=== PATIENT | female | born 1990 | race Caucasian/White ===

== ENCOUNTER → 2020-07-21 11:35 | Outpatient (CLI) | payer OTHER, SELFPAY ==
[2020-07-21 13:04] LABS: Add Manual Diff / Slide Review NO; Basophils Absolute Auto 100 /uL (0-100); Basophils Percent Auto 0.7 % (0-2); Eosinophils Absolute Auto 100 /uL (0-450); Eosinophils Percent Auto 1.5 % (2-4); Hemoglobin 11.2 g/dL (12.0-16.0); Lymphocytes Absolute Auto 1700 /uL (1100-4500); Lymphocytes Percent Auto 19.1 % (25-40); Mean Corpuscular Hemoglobin 26.5 PG (26-34); Mean Corpuscular Volume 80.5 fL (80-100); Monocytes Absolute Auto 600 /uL (0-900); Monocytes Percent Auto 6.6 % (3-14); Neutrophils Absolute Auto 6300 /uL (1500-7000); Neutrophils Percent Auto 72.1 % (50-75); Platelet Count 248 X10^3/uL (150-400); Red Blood Cell Count 4.22 X10^6/uL (4.0-5.2); Red Cell Distribution Width 14.8 % (11.6-14.8); White Blood Cell Count 8.7 X10^3/uL (4.5-11.0)
[2020-07-21 13:17] LABS: GTT (PREG) 1 Hour PP 50gm Dose 109 mg/dL (76-139)
== END ==
PROVIDERS: PCP Family Medicine; Referring Provider Family Medicine; Visit Provider Family Medicine
DX: Z34.90 Encounter for supervision of normal pregnancy, unspecified, unspecified trimester (principal)
CPT/HCPCS: 36415; 82950; 85025

== ENCOUNTER → 2020-08-03 08:10 | Outpatient (CLI) | payer OTHER, SELFPAY ==
--- NOTE | 2020-08-03 08:11 | DI.US.S_ITS ---
PROCEDURE: US OB LIMITED INDICATIONS: SIZE > DATES. GROWTH AND AMNIOTIC FLUID OUTSIDE/PRIOR DATING DATA: Last menstrual period (LMP): 01/04/2020. LMP-based estimated date of delivery (MELODIE): 10/10/2020 . First dating scan (date and location): 05/28/2020 . Estimated date of delivery (MELODIE) from first dating scan: 10/08/2020 . TECHNIQUE: Real-time scanning was performed of the fetus, with image documentation and biometric measurements. Endovaginal scanning: No COMPARISON: [facility], RG, US OB > 14 WEEKS, 05/28/2020, 8:02. [facility], RG, US OB LIMITED, 06/18/2020, 14:10. FINDINGS: General: A single living intrauterine gestation is present. Presentation: Vertex. Placenta: Placental position is anterior , without previa. Amniotic fluid index: 10.1 cm, normal range is 5-24 cm. heart rate: 137 beats per minute. Maternal cervical canal: 5.0 cm long. Normal lower limit is 2.5 cm. biometrics: Biparietal diameter: 33 weeks 1 day Head circumference: 31 weeks 5 days Abdominal circumference: 31 weeks 5 days Femur length: 31 weeks 4 days Estimated gestational age from initial scan: 30 weeks 4 days Composite gestational age from present scan: 32 weeks Estimated weight and percentile: 18 30 g; 79th percentile Measurement variability for biometric dating: +/- 7 days from 14 weeks to 15 weeks 6 days gestation, +/- 10 days from 16 weeks to 21 weeks 6 days gestation, +/- 2 weeks from 22 weeks to 27 weeks 6 days gestation, +/- 3 weeks for 28 weeks gestation or later. weight reference: 4500 g or EFW >90/95% is considered macrosomia or large for gestational age. EFW <10% is small for gestational age. EFW 5% or less is considered intra-uterine growth restriction. Other: Limited anatomic survey. IMPRESSION: Single living IUP redemonstrated and interval growth is normal. Dictated by: Felix Zeng [facility] Interpreted: Aki Bowie MD on 08/03/2020 at 9:41 Approved by: Aki Bowie M.D. on 08/03/2020 at 14:18
== END ==
PROVIDERS: PCP Family Medicine; Referring Provider Family Medicine; Visit Provider Family Medicine
DX: O26.843 Uterine size-date discrepancy, third trimester (principal); Z3A.29 29 weeks gestation of pregnancy
CPT/HCPCS: 76815

== ENCOUNTER → 2020-08-25 09:58 | Outpatient (CLI) | payer OTHER, SELFPAY | PROVIDERS: PCP Family Medicine; Visit Provider Family Medicine | DX: R82.90 Unspecified abnormal findings in urine (principal) | CPT/HCPCS: 87086 ==

== ENCOUNTER → 2020-09-13 10:42 | Outpatient (CLI) | payer OTHER, SELFPAY ==
--- NOTE | 2020-09-13 10:44 | DI.US.S_ITS ---
PROCEDURE: US OB LIMITED INDICATIONS: SIZE > DATES AND AMNIOTIC FLUID OUTSIDE/PRIOR DATING DATA: Last menstrual period (LMP): 01/04/2020 . LMP-based estimated date of delivery (MELODIE): 10/10/2020 . First dating scan (date and location): [facility], 05/28/2020 . Estimated date of delivery (MELODIE) from first dating scan: 10/08/2020 TECHNIQUE: Real-time scanning was performed of the fetus, with image documentation. Endovaginal scanning: Not performed COMPARISON: [facility], US OB LIMITED, 08/03/2020, 8:36. FINDINGS: A single living intrauterine gestation is present. Presentation: Vertex. Placenta: Placental position is anterior, without previa. Amniotic fluid index: 7.8 cm, normal range is 5-24 cm. heart rate: 150 beats per minute. Maternal cervical canal: 3.1 cm long. Normal lower limit is 2.5 cm. Estimated gestational age from initial scan: 36 week 3 day . Biparietal diameter: 9.7 cm, 39 week 4 day, greater than 99th percentile Head circumference: 34.5 cm, 39 week 6 day, 92 percentile Abdominal circumference: 31.2 cm, 35 week 0 day, 22 percentile Femur length: 7.1 cm, 36 week 2 day, 43 percentile Composite gestational age today: 37 week 5 day Estimated weight: 2909 g, 50th percentile IMPRESSION: Single live intrauterine consistent overall with 37 week 5 day gestation by ultrasound Biparietal diameter measurement is greater than the 99th percentile for EGA Dictated by: Jefe Velasquez M.D. on 09/15/2020 at 9:47 Approved by: Jefe Velasquez M.D. on 09/15/2020 at 10:03
== END ==
PROVIDERS: PCP Family Medicine; Referring Provider Family Medicine; Visit Provider Family Medicine
DX: O26.843 Uterine size-date discrepancy, third trimester (principal); Z3A.37 37 weeks gestation of pregnancy
CPT/HCPCS: 76815

== ENCOUNTER → 2020-09-15 11:47 | Outpatient (CLI) | payer OTHER, SELFPAY ==
[2020-09-16 11:29] LABS: Strep Grp B PCR NEG for Grp B Strep
== END ==
PROVIDERS: PCP Family Medicine; Visit Provider Family Medicine
DX: Z34.90 Encounter for supervision of normal pregnancy, unspecified, unspecified trimester (principal); Z3A.36 36 weeks gestation of pregnancy
CPT/HCPCS: 87653

== ENCOUNTER 2020-10-06 00:27 | Outpatient (CLI) | payer SELFPAY | END 2020-10-06 01:38 | disposition home or self-care (01) | LOC: OB 08:42 | PROVIDERS: Referring Provider Obstetrics & Gynecology; Visit Provider Obstetrics & Gynecology | DX: O47.1 False labor at or after 37 completed weeks of gestation (principal); Z3A.39 39 weeks gestation of pregnancy | CPT/HCPCS: 59025; G0378; G0379 ==

== ENCOUNTER 2020-10-06 06:48 | Inpatient (IN) | payer OTHER, SELFPAY ==
[2020-10-06 07:41] LABS: Add Manual Diff / Slide Review NO; Basophils Absolute Auto 100 /uL (0-100); Basophils Percent Auto 0.5 % (0-2); Eosinophils Absolute Auto 0 /uL (0-450); Eosinophils Percent Auto 0.4 % (2-4); Hemoglobin 11.9 g/dL (12.0-16.0); Lymphocytes Absolute Auto 1800 /uL (1100-4500); Lymphocytes Percent Auto 13.3 % (25-40); Mean Corpuscular HGB Conc 32.3 % (30-36); Mean Corpuscular Hemoglobin 25.2 PG (26-34); Mean Corpuscular Volume 78.1 fL (80-100); Monocytes Absolute Auto 600 /uL (0-900); Monocytes Percent Auto 4.7 % (3-14); Neutrophils Absolute Auto 10700 /uL (1500-7000); Neutrophils Percent Auto 81.1 % (50-75); Platelet Count 234 X10^3/uL (150-400); Red Blood Cell Count 4.74 X10^6/uL (4.0-5.2); Red Cell Distribution Width 16.4 % (11.6-14.8); White Blood Cell Count 13.2 X10^3/uL (4.5-11.0)
[2020-10-06 07:48] VITALS: BP 125/62
--- NOTE | 2020-10-06 08:15 | PM.OBHP.1 ---
OB HPI Date/Time Date of admission: 10/06/20 Date Patient Seen: 10/06/20 Time Patient Seen: 07:45 History of Present Condition Chief complaint: LABOR : 2 Para: 1 Estimated Date of Delivery: 10/10/20 Estimated Gestational Age (weeks): 39w3d Narrative: Princess Mcnair is a 30 year old at 39w3d who presented with regular painful contractions. Pt reports contractions starting around 10pm, picking up in intensity significantly around 11pm. They have continued to worsen since then. She has some vaginal spotting, no LOF. She is feeling her baby move regularly. The pts has been uncomplicated. History of Present care: good care, initiated at week # (8) and pounds weight gain (31) Dating criteria: based on 1st trimester US only Ultrasounds: normal 1st trimester US and normal mid trimester US Obstetrical complications: none Medical complications: none Preadmission Labs Blood type: O (+) positive -: Antibody screen: negative, GBS status: negative, HBsAG: negative, HIV: negative and RPR/VDLR: negative -: Chlamydia screen: not detected and Gonorrhea screen: not detected -: Rubella: immune and Varicella: immune HCT: 34 HCAB: negative PAP: Normal Sequential screen: Negative Urine: Negative Fasting blood glucose: 109 Prior (ies) History: 02/13/16 - at 40w1d, 1gx69yb male, no complications Evaluation Evaluation Baseline heart rate: 130 Variability: Moderate (11-25) monitor accelerations: Present Monitor Decelerations: Absent Contraction Frequency (minutes): 4 Uterine Contraction Intensity: Strong/Firm Status: Category l Cervical dilation (cm): 5 Cervical effacement (%): 90 station: -1 Laboratory results: Laboratory Tests 10/06/20 07:30 WBC 13.2 H RBC 4.74 Hgb 11.9 L Hct 37.0 MCV 78.1 L MCH 25.2 L MCHC 32.3 RDW 16.4 H Plt Count 234 Neut % (Auto) 81.1 H Lymph % (Auto) 13.3 L [place] % (Auto) 4.7 Eos % (Auto) 0.4 L Baso % (Auto) 0.5 Neut # (Auto) 11948 H Lymph # (Auto) 1800 [place] # (Auto) 600 Eos # (Auto) 0 Baso # (Auto) 100 PFSH Medical History (System 10/06/20 @ 08:39 by Malu Sarmiento) (spontaneous vaginal delivery) (~02/13/16) Surgical History (System 10/06/20 @ 08:39 by Malu Sarmiento) S/P laparoscopic cholecystectomy [place] teeth extracted (~2017) Family History (System 10/06/20 @ 08:39 by Malu Sarmiento) Mother History of fibromyalgia Hyperlipidemia Depression Sciatica Diabetes mellitus Type 2 diabetes mellitus Father Heart abnormality Grandmother Diabetes mellitus Hyperlipidemia Hypertension Grandfather Cancer Grandmother Alzheimers disease Grandfather Heart failure Family/Other Ovarian cyst Brother No problems noted. Sister No problems noted. 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 kali/protestant: Gnosticism special kali needs: No Smoking Status: Never smoker second hand exposure: No alcohol intake: former (pre- : on occasion) substance use type: does not use and marijuana (Not during ) Meds Home Medications and Allergies Home Medications Medication Instructions Recorded Confirmed Type prenat.vits,ayana,[id number] 1 tab PO DAILY 06/29/20 10/06/20 History metronidazole 500 mg tablet 500 mg PO BID #14 tab 06/30/20 10/06/20 Rx No Known Home Medications 10/06/20 10/06/20 History Allergies Allergy/AdvReac Type Severity Reaction Status Date / Time Sulfa (Sulfonamide Allergy Intermediate Hives Verified 10/06/20 08:39 Antibiotics) Exam Vital Signs (past 8 hours): - 10/06/20 07:48 Blood Pressure 125/62 Const General: cooperative, healthy appearing and comfortable Orientation: alert, awake and oriented x3 Resp Effort & Inspection: normal respiratory effort Auscultation: clear to auscultation bilaterally Cardio Rate: regular rate Rhythm: regular rhythm Heart Sounds: S1 normal, S2 normal and no murmurs GI Inspection: non-distended Palpation: soft and No tender Other: gravid Presentation: vertex Extrem General: no clubbing, cyanosis or edema Objective Labs Result Diagrams: 10/06/20 07:30 Labs: Laboratory Results - last 24 hr 10/06/20 07:30 WBC 13.2 H RBC 4.74 Hgb 11.9 L Hct 37.0 MCV 78.1 L MCH 25.2 L MCHC 32.3 RDW 16.4 H Plt Count 234 Neut % (Auto) 81.1 H Lymph % (Auto) 13.3 L [place] % (Auto) 4.7 Eos % (Auto) 0.4 L Baso % (Auto) 0.5 Neut # (Auto) 63619 H Lymph # (Auto) 1800 [place] # (Auto) 600 Eos # (Auto) 0 Baso # (Auto) 100 Assessment and Plan Assessment and Plan Assessment and Plan narrative: Pt is a 30 year old at 39w3d who presented in active labor. GBS negative, Rh positive. - Expectant management, anticipate - FHT reassuring, intermittent monitoring okay - GBS negative, no prophylaxis indicated - Epidural for pain control if desired. Pt does not request at this time.
[2020-10-06 08:33] LABS: COVID19 - ADMIT (NP swab/PCR) Negative (Negative)
[2020-10-06] MEDS: CALCIUM CARBONATE 500 MG TAB 1000 MG PO ×2 (11:53→17:47)
[2020-10-06] MEDS: FENT 2MCG/ML BUPIV 0.125% EPI 200 MCG/100 ML PLAST..BAG 6 MCG EPIDURAL (14:35)
--- NOTE | 2020-10-06 14:38 | PM.AN.REGBLK ---
Regional Block Pre-procedure Procedure: Continuous Lumbar Epidural for L&D Attending OB provider: Glory Costa PMH/ROS narrative: term labor, no complications. BMI 40 Hx: No personal or family history of anesthesia problems. ASA Class: III Labs: Hct 37.0 % (36-46) 10/06/20 07:30 Plt Count 234 X10^3/uL (150-400) 10/06/20 07:30 Medications: Current Medications Generic Name Dose Route Start Last Admin Trade Name Freq PRN Reason Stop Dose Admin Carboprost Tromethamine 250 mcg 10/06/20 07:18 Carboprost 250 Mcg/Ml Ampul IM Q90M PRN Bleeding Lactated Ringer's 1,000 mls @ 100 mls/hr 10/06/20 07:30 Lactated Ringers IV CONT OLIMPIA Oxytocin/Lactated Ringer's 30 unit in 500 mls @ 200 mls/hr 10/06/20 07:18 Oxytocin Premix IV CONT PRN Bleeding Protocol Tranexamic Acid 1,000 mg/ 100 mls @ 200 mls/hr 10/06/20 07:18 Sodium Chloride IV NOW PRN Bleeding Methylergonovine Maleate 0.2 mg 10/06/20 07:18 Methylergonovine 0.2 Mg Tablet PO Q6HR PRN Heavy Bleeding Methylergonovine Maleate 0.2 mg 10/06/20 07:18 Methylergonovine 0.2 Mg/Ml Vial IM NOW PRN Bleeding Misoprostol 800 mcg 10/06/20 07:18 Misoprostol 200 Mcg Tablet OH NOW PRN Bleeding Misoprostol 1,000 mcg 10/06/20 07:18 Misoprostol 200 Mcg Tablet OH NOW PRN Bleeding Misoprostol 400 mcg 10/06/20 07:18 Misoprostol 200 Mcg Tablet SL NOW PRN Bleeding Oxytocin 10 unit 10/06/20 07:18 Oxytocin 10 Unit/Ml Vial IM NOW PRN Bleeding Allergies: Allergies Allergy/AdvReac Type Severity Reaction Status Date / Time Sulfa (Sulfonamide Allergy Intermediate Hives Verified 10/06/20 08:39 Antibiotics) Procedure Insertion date: 10/06/20 Insertion time: 14:00 Prep/Local: betadine x3 Interspace: L4-5 Patient position: sitting Needle: 18 gauge Ester (CSE: 27g [place] through [place], clear CSF, 1mL 0.25% bupiv) Loss of resistance with: saline MELISSA at (cm): 8 Catheter placed at SKIN (cm): 15 Catheter in SPACE (cm): 7 Insertion: No CSF, Yes Blood, No Paresthesia with insertion, No Paresthesia with injection and Yes Test dose reaction Initial Medications BOLUS DOSE time: 14:30 BOLUS DOSE (mL): 3 BOLUS DOSE med: other (infusate) Infusion INFUSION: 0.125% bupivacaine and with fentanyl 2 mcg/mL Initial rate (mL/hr): 6 Subsequent interventions: L2-3, unable. L3-4 CSE, catheter, (+) test dose x 2, (+) heme through catheter. Replaced at L4-5, (-) heme, (-) test dose. 21:05 Post-procedure Anesthesia time START: 13:45 Anesthesia time END: 21:05 Post-procedure Anesthesia Assessment: Yes CV function: HR/BP stable, Yes Resp function: RR/sat/airway adequate, Yes Mental status appropriate and No Anesthesia complications
[2020-10-06] MEDS: LACTATED RINGERS 1,000 ML 100 ML IV (16:48)
[2020-10-06] MEDS: OXYTOCIN PREMIX 30 UNIT/500 ML PLAST..BAG 200 UNIT IV (20:20)
--- NOTE | 2020-10-06 21:25 | PM.OBPRVD ---
Labor & Delivery Delivery date: 10/06/20 Intrapartal Events: Prolonged 2nd Stage > 2.5 hours Cervical ripening method: none Induction method: none Delivery augmentation: rupture of membranes Delivery monitor: external FHT Route of delivery: Episiotomy description: None L&D Laceration Description: None Estimated blood loss (mL): 50 Anesthesia Type: Epidural Complications: None Narrative: PROCEDURE: at 39w3d presented in active labor and was admitted to Labor and Delivery. The patient progressed through the 1st stage over 14.5 hours. Pain was controlled with an epidural. AROM was performed with light meconium-stained fluid. The patient progressed through the 2nd stage over 5 hours 45 minutes, with pushing for 4.5 hours. While pushing the baby was noted to be in OP presentation. Manual rotation was attempted but unsuccessful. Multiple positions were attempted. Pitocin was initiated in the 2nd stage due to spacing of contractions. The pt was noted to have a very adequate pelvis. The decision was made to proceed with vacuum-assisted delivery, however prior to application the baby had more rapid descent, and the pt regained significant strength. She delivered a viable male infant with APGARs 8/9 at 21:05 via without complications, and no vacuum application. The cord was cut and clamped after it stopped pulsating. The perineum and vagina were inspected with no lacerations. PREPROCEDURE DIAGNOSIS: Intrauterine at 39w3d GBS negative RH positive POSTPROCEDURE DIAGNOSIS: Intrauterine at 39w3d, delivered Same as preprocedure [place] Baby 1: Infant gender: Male Presentation: vertex Position: Left Occiput Posterior Placenta delivery description: Spontaneous Cord Vessel Description: 3 Vessels score (1 min): 8 score (5 min): 9 weight: 8 lb 15 oz Plan for aftercare: Routine care
[2020-10-07] MEDS: DERMOPLAST SPRAY 20% 60 ML 1 SPRAY TOP (00:45)
[2020-10-07] MEDS: ACETAMINOPHEN 325 MG TABLET 650 MG PO (00:47)
[2020-10-07] MEDS: IBUPROFEN 600 MG TABLET PO ×2 (00:48→09:45)
[2020-10-07] MEDS: LANOLIN OINT 7 GM 1 APPLIC TOP (01:24)
[2020-10-07] MEDS: OXYCODONE IR 5 MG TABLET PO ×2 (01:24→09:46)
[2020-10-07] MEDS: DOCUSATE 100 MG CAPSULE PO (09:45)
[2020-10-07] MEDS: PRENATAL VIT,CALC/IRON/FOLIC 1 TABLET 1 TAB PO (09:45)
--- NOTE | 2020-10-07 10:10 | P.DS_ITS ---
Discharge Providers Provider Date of admission: 10/06/20 06:48 Discharge Date: 10/07/20 Primary care physician: Glory Costa MD Consults: 10/07/20 21:24 Consult to [employer] Worker Routine Comment: Discharge provider: Glory Costa MD Summary Hospital Course Date Patient Seen: 10/07/20 Time Patient Seen: 09:00 Diagnoses: 39w3d gestation GBS negative Rh positive Prolonged second stage Hospital Course: The patient presents today in active labor. She received an epidural for pain control. She progressed to complete when AROM was performed with production of meconium-stained fluid. The patient then pushed for a total of 4.5 hours due to direct OP presentation. She ultimately had a spontaneous vaginal delivery of a viable baby boy at 9:05 p.m. on 10/06/2020. There were no lacerations or complications with delivery. , there were no complications. At the time of discharge she was voiding, ambulating, passing flatus without difficulty. Her lochia was decreasing appropriately. Her pain was adequately controlled. She did breastfeed with good latch. She will follow up in clinic for 6 week check. Her plans on vasectomy for contraception. Peripartum Data Infant Delivery Method: Natural Vaginal Laceration Description: None Episiotomy description: None Procedures: Spontaneous vaginal delivery complications: none [place] 1: Gender: Male Disposition of : home Discharge Diagnosis (1) (spontaneous vaginal delivery): Status: Inactive Status at Discharge Cognitive/behavioral status at discharge: oriented Functional status at discharge: independent ambulation Overall status at discharge: patient is progressing back to baseline Time Spent with Patient Time attestation: Total time spent providing and/or coordinating discharge services: Objective Labs Result Diagrams: 10/06/20 07:30 Exam Narrative Exam Narrative: Gen: NAD, sitting comfortably in bed, appears well CV: RRR, no murmurs Resp: clear to auscultation bilaterally Abd: soft, appropriately tender, fundus firm and below the umbilicus, nondistended Ext: no edema Discharge Plan Discharge Plan Patient Disposition: Home Discharge orders & Medications Prescriptions: Continued prenat.vits,ayana,[id number] Tablet 1 tab PO DAILY RF: 0 Discontinued metronidazole 500 mg tablet 500 mg PO BID Qty: 14 RF: 0 Follow up/Referrals: Glory Costa MD [Primary Care Provider] - 6 Weeks Diet/Activity/Treatments Diet: Diet as Tolerated and Regular Skin/Wound/Dressing Care Report to your healthcare provider any signs of infection, such as:: chills, fever, increased pain and unusual drainage Visit Report/Discharge Packet Instructions: DI for Labor and Delivery, Vaginal Visit Report Forms: Patient Portal/API, Stroke Signs & Symptoms Discharge Data Primary Care Provider: Glory Costa
[2020-10-07 16:29] VITALS: BP 125/62; PULSE 80; RESP 18; TEMP 36.6
== END 2020-10-07 20:17 | disposition home or self-care (01) | DRG 806 ==
PROVIDERS: Admitting Provider Family Medicine; PCP Family Medicine; Referring Provider Family Medicine; Visit Provider Family Medicine
DX: O63.1 Prolonged second stage (of labor) (principal); O47.1 False labor at or after 37 completed weeks of gestation; Z37.0 Single live birth; Z3A.39 39 weeks gestation of pregnancy
CPT/HCPCS: 01967; 36415; 59025; 59050; 59410; 84112; 85025; 86850; 86900; 86901; 87635; C9803; G0379; J2590